=== PATIENT | female | born 2000 | race African-American/Black ===

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

== ENCOUNTER 2022-02-01 00:29 | Emergency (ER) | payer MEDICAID ==
[~2022-02-01] VITALS: Ht 170.2 cm; Wt 90.0 kg
[2022-02-01] MEDS ORDERED: IBUPROFEN 600MG TABLET PO ONE (00:45)
[2022-02-01 01:16] VITALS: BP 132/81
== END 2022-02-01 01:18 ==
LOC: ER 00:29
DX: M54.2 Cervicalgia (principal); M25.532 Pain in left wrist; M25.531 Pain in right wrist; F12.10 Cannabis abuse, uncomplicated; Y35.893A Legal intervention involving other specified means, suspect injured, initial encounter; Y93.89 Activity, other specified; Y92.89 Other specified places as the place of occurrence of the external cause
CPT/HCPCS: 99283